=== PATIENT | female | born 1995 | race Caucasian/White ===

== ENCOUNTER 2016-12-29 16:16 | Emergency (ER) | payer OTHER ==
[~2016-12-29] VITALS: Ht 154.9 cm; Wt 68.2 kg
[2016-12-29 16:16] VITALS: BP 111/66
[~2016-12-29 16:16] MED LIST: ACET50TA PO; DOCU10CA PO; IBUP80TA PO
== END 2016-12-29 19:10 | disposition left against medical advice (07) ==
LOC: M ED 16:16
DX: M79.604 Pain in right leg (principal); F17.210 Nicotine dependence, cigarettes, uncomplicated

== ENCOUNTER → 2017-06-15 | Outpatient (REF) | payer OTHER | LOC: M LAB REF 16:13 | DX: R30.0 Dysuria (principal) ==

== ENCOUNTER → 2018-12-04 | Outpatient (CLI) | payer MEDICAID ==
[~2018-12-04] MED LIST changes: -ACET50TA PO; +MAPA500T2 PO
== END ==
LOC: M OUTALCOH 08:40
PROVIDERS: ATTEND Psychiatry & Neurology Psychiatry
DX: Z03.89 Encounter for observation for other suspected diseases and conditions ruled out (principal)

== ENCOUNTER 2018-12-17 10:29 | Outpatient (RCR) | payer MEDICAID | END 2019-01-13 | LOC: M OUTALCOH 10:29 | PROVIDERS: ATTEND Psychiatry & Neurology Psychiatry | DX: Z03.89 Encounter for observation for other suspected diseases and conditions ruled out (principal) ==

== ENCOUNTER 2019-05-21 17:30 | Emergency (ER) | payer MEDICAID ==
[~2019-05-21] VITALS: Ht 154.9 cm; Wt 77.3 kg
[2019-05-21] MEDS ORDERED: LIDOCAINE 2% W/EPIN INJ 20ML **PRES FREE INJ ONE (20:00)
[2019-05-21 21:07] VITALS: BP 131/76
--- NOTE | 2019-05-22 07:43 | REP ---
Right wrist two views: There is no fracture or dislocation. Mineralization joint spaces are normal. There are no calcifications or foreign bodies. There is questionably a defect in the soft tissues over the dorsum of the metacarpals. This should be correlated clinically. Electronically Signed by Tyrone Childs MD 05/22/2019 07:35 A
== END 2019-05-21 21:28 | disposition home or self-care (01) ==
LOC: EDBD 17:30 → M ED 17:30
DX: S61.411A Laceration without foreign body of right hand, initial encounter (principal); S61.511A Laceration without foreign body of right wrist, initial encounter; W25.XXXA Contact with sharp glass, initial encounter; Y92.018 Other place in single-family (private) house as the place of occurrence of the external cause

== ENCOUNTER → 2019-09-29 | Outpatient (CLI) | payer OTHER | LOC: M LABSMTC 12:21 | PROVIDERS: ATTEND Family Medicine | DX: Z03.818 Encounter for observation for suspected exposure to other biological agents ruled out (principal); Z11.59 Encounter for screening for other viral diseases | CPT/HCPCS: C9803; U0003 ==

== ENCOUNTER → 2019-12-10 | Outpatient (REF) | payer OTHER ==
[2019-12-12 16:43] LABS: CHLAMYDIA DNA AMPLIFICATION NEGATIVE (NEGATIVE); GC DNA AMPLIFICATION NEGATIVE (NEGATIVE)
== END ==
LOC: M SFHCWAGY 11:57
PROVIDERS: ATTEND Nurse Practitioner Family
DX: Z12.4 Encounter for screening for malignant neoplasm of cervix (principal); Z11.3 Encounter for screening for infections with a predominantly sexual mode of transmission; N76.0 Acute vaginitis

== ENCOUNTER 2020-01-20 03:15 | Emergency (ER) | payer OTHER ==
[~2020-01-20] VITALS: Ht 154.9 cm; Wt 77.3 kg
[2020-01-20 04:01] LABS: HEMOGLOBIN 14.3 g/dl (12.0-15.5); MEAN CORPUSCULAR HEMOGLOBIN 33.2 pg (27.0-33.0); MEAN CORPUSCULAR HGB CONC 33.3 g/dl (32.0-36.5); MEAN CORPUSCULAR VOLUME 99.8 fl (80.0-96.0); PLATELET COUNT, AUTOMATED 223 10^3/uL (150-450); RED BLOOD COUNT 4.31 10^6/uL (4.00-5.40); WHITE BLOOD COUNT 6.3 10^3/uL (4.0-10.0)
[2020-01-20 04:28] LABS: HCG, SERUM QUALITATIVE NEGATIVE (NEGATIVE)
[2020-01-20 04:38] LABS: AMPHETAMINES LEVEL URINE NEGATIVE (NEGATIVE); BARBITURATES URINE NEGATIVE (NEGATIVE); BENZODIAZEPINES URINE NEGATIVE (NEGATIVE); CANNABINOIDS URINE NEGATIVE (NEGATIVE); COCAINE METABOLITE URINE NEGATIVE (NEGATIVE); METHADONE URINE NEGATIVE (NEGATIVE); OPIATES URINE POSITIVE (NEGATIVE); PHENCYCLIDINE URINE NEGATIVE (NEGATIVE)
[2020-01-20 04:41] LABS: ACETAMINOPHEN LEVEL < 2.0 UG/ML (10.0-30.0); ALBUMIN 3.9 GM/DL (3.2-5.2); ALT/SGPT 135 U/L (12-78); BILIRUBIN,DIRECT < 0.1 MG/DL (0.0-0.2); BILIRUBIN,TOTAL 0.3 MG/DL (0.2-1.0); BLOOD UREA NITROGEN 8 MG/DL (7-18); CALCIUM LEVEL 8.8 MG/DL (8.5-10.1); CARBON DIOXIDE LEVEL 28 MEQ/L (21-32); CHLORIDE LEVEL 111 MEQ/L (98-107); CREATININE FOR GFR 0.68 MG/DL (0.55-1.30); ETHYL ALCOHOL (ETHANOL) 0.228 % (0.000-0.010); GLOMERULAR FILTRATION RATE > 60.0 (>60); GLUCOSE, FASTING 89 MG/DL (70-100); POTASSIUM SERUM 4.5 MEQ/L (3.5-5.1); SALICYLATE LEVEL < 1.7 MG/DL (5.0-30.0); SODIUM LEVEL 144 MEQ/L (136-145); TOTAL PROTEIN 7.6 GM/DL (6.4-8.2)
[2020-01-20 11:47] VITALS: BP 121/72
== END 2020-01-20 11:57 | disposition home or self-care (01) ==
LOC: M ED 03:15
DX: F10.120 Alcohol abuse with intoxication, uncomplicated (principal); F17.210 Nicotine dependence, cigarettes, uncomplicated
CPT/HCPCS: 36415; 80048; 80076; 80307; 84443; 84703; 85027; 99284; G0480

== ENCOUNTER 2020-02-08 17:40 | Emergency (ER) | payer OTHER ==
[~2020-02-08] VITALS: Ht 154.9 cm; Wt 75.7 kg
[2020-02-08 17:41] VITALS: BP 119/69
== END 2020-02-08 19:14 | disposition home or self-care (01) ==
LOC: M ED 17:40
DX: R05 Cough (principal); R09.89 Other specified symptoms and signs involving the circulatory and respiratory systems; J02.9 Acute pharyngitis, unspecified; Z20.828 Contact with and (suspected) exposure to other viral communicable diseases; F17.290 Nicotine dependence, other tobacco product, uncomplicated
CPT/HCPCS: 99282; U0003

== ENCOUNTER → 2021-10-06 | Outpatient (REF) | payer OTHER | LOC: M SFHCLERA 15:48 | PROVIDERS: ATTEND Family Medicine | DX: R52 Pain, unspecified (principal) ==

== ENCOUNTER → 2022-02-07 | Outpatient (REF) | payer OTHER | LOC: M LAB REF 17:36 | PROVIDERS: ATTEND Student in an Organized Health Care Education/Training Program | DX: J02.9 Acute pharyngitis, unspecified (principal) ==

== ENCOUNTER → 2022-12-22 | Outpatient (CLI) | payer OTHER ==
[2022-12-22 17:45] LABS: HEMATOCRIT 39.6 % (36.0-47.0); HEMOGLOBIN 13.2 g/dl (12.0-15.5); MEAN CORPUSCULAR HEMOGLOBIN 31.4 pg (27.0-33.0); MEAN CORPUSCULAR HGB CONC 33.3 g/dl (32.0-36.5); MEAN CORPUSCULAR VOLUME 94.1 fl (80.0-96.0); PLATELET COUNT, AUTOMATED 221 10^3/uL (150-450); RED BLOOD COUNT 4.21 10^6/uL (4.00-5.40); WHITE BLOOD COUNT 11.3 10^3/uL (4.0-10.0)
[2022-12-22 18:32] LABS: HIV 1&2 SCREEN NEGATIVE (NEGATIVE)
[2022-12-22 18:40] LABS: HEPATITIS C VIRUS ABY INDEX 0.15 INDEX (<0.8)
[2022-12-22 19:20] LABS: GC DNA AMPLIFICATION NEGATIVE (NEGATIVE)
== END ==
LOC: M PLALAB 14:31
PROVIDERS: ATTEND Specialist
DX: Z34.81 Encounter for supervision of other normal pregnancy, first trimester (principal)

== ENCOUNTER → 2023-03-14 | Outpatient (CLI) | payer OTHER | LOC: M WHC 09:44 | PROVIDERS: ATTEND Obstetrics & Gynecology | DX: Z34.92 Encounter for supervision of normal pregnancy, unspecified, second trimester (principal) ==

== ENCOUNTER → 2023-04-03 | Outpatient (CLI) | payer OTHER ==
[2023-04-03 14:42] LABS: HEMATOCRIT 36.6 % (36.0-47.0); MEAN CORPUSCULAR HEMOGLOBIN 30.9 pg (27.0-33.0); MEAN CORPUSCULAR HGB CONC 32.8 g/dl (32.0-36.5); MEAN CORPUSCULAR VOLUME 94.3 fl (80.0-96.0); PLATELET COUNT, AUTOMATED 175 10^3/uL (150-450); RED BLOOD COUNT 3.88 10^6/uL (4.00-5.40); WHITE BLOOD COUNT 12.1 10^3/uL (4.0-10.0)
[2023-04-03 16:06] LABS: CHLAMYDIA DNA AMPLIFICATION NEGATIVE (NEGATIVE); GC DNA AMPLIFICATION NEGATIVE (NEGATIVE)
== END ==
LOC: M PLALAB 09:29
PROVIDERS: ATTEND Obstetrics & Gynecology
DX: Z34.92 Encounter for supervision of normal pregnancy, unspecified, second trimester (principal)

== ENCOUNTER → 2023-06-11 | Outpatient (REF) | payer OTHER | LOC: M SFHCWAGY 15:02 | PROVIDERS: ATTEND Obstetrics & Gynecology | DX: Z36.89 Encounter for other specified antenatal screening (principal); Z3A.36 36 weeks gestation of pregnancy ==

== ENCOUNTER → 2023-06-11 | Outpatient (REF) | payer OTHER | LOC: M PLALAB 10:06 | PROVIDERS: ATTEND Obstetrics & Gynecology | DX: Z53.9 Procedure and treatment not carried out, unspecified reason (principal) ==

== ENCOUNTER 2023-07-10 09:44 | Inpatient (IN) | payer OTHER ==
[~2023-07-10] VITALS: Ht 154.9 cm; Wt 98.7 kg
[2023-07-10] VITALS (12 sets, daily range): BP systolic 100–133; BP diastolic 59–78
[2023-07-10] MEDS ORDERED: OMEP-173 PO (10:11)
[2023-07-10] MEDS ORDERED: MULTTAB20 PO (10:11)
[2023-07-10] MEDS ORDERED: LIDOCAINE 1% MDV 20ML VIAL INFIL PRN (10:25)
[2023-07-10] MEDS ORDERED: OXYTOCIN DRIP 30 UNITS in IV 1 EA IV PRN (10:25)
[2023-07-10] MEDS: miSOPROStol 50MCG 1/2 TABLET SL SCH ×2 (11:03→15:05)
[2023-07-10 11:33] LABS: HEMATOCRIT 34.1 % (36.0-47.0); HEMOGLOBIN 11.1 g/dl (12.0-15.5); MEAN CORPUSCULAR HEMOGLOBIN 27.8 pg (27.0-33.0); MEAN CORPUSCULAR HGB CONC 32.6 g/dl (32.0-36.5); MEAN CORPUSCULAR VOLUME 85.5 fl (80.0-96.0); PLATELET COUNT, AUTOMATED 178 10^3/uL (150-450); RED BLOOD COUNT 3.99 10^6/uL (4.00-5.40)
[2023-07-10] MEDS: LR 1,000 ML IV SCH (23:11)
[2023-07-10] MEDS: OXYTOCIN DRIP 30 UNITS in IV 1 EA IV SCH (23:19)
[2023-07-11] VITALS (50 sets, daily range): BP systolic 87–132; BP diastolic 51–81; O2SAT 97–98
[2023-07-11] MEDS ORDERED: diphenhydrAMINE 50MG/ML VIAL IV PRN (01:10)
[2023-07-11] MEDS ORDERED: NALOXONE INJ 0.4MG/1ML VIAL IV PRN (01:10)
[2023-07-11] MEDS ORDERED: ePHEDrine SULFATE 25 MG/5 ML(5MG/ML) SYRINGE IVP PRN (01:10)
[2023-07-11] MEDS ORDERED: ONDANSETRON 4MG 2ML VIAL IV PRN (01:10)
[2023-07-11] MEDS ORDERED: LR 500 ML IV PRN (01:10)
[2023-07-11] MEDS ORDERED: EPIDURAL/PCA KEYS XX PRN (01:10)
[2023-07-11] MEDS: FENTANYL/ROPIVACAINE/NACL BAG 100 ML EPIDURAL SCH (01:37)
[2023-07-11] MEDS ORDERED: IBUPROFEN 600MG TAB PO PRN (11:45)
[2023-07-11] MEDS ORDERED: RHOGAM 300MCG (1500IU) INJ IM SCH (11:45)
[2023-07-11] MEDS ORDERED: DIBUCAINE 1% OINTMENT 30GM TOP PRN (11:45)
[2023-07-11] MEDS ORDERED: DOCUSATE SODIUM 100MG CAPSULE PO PRN (11:45)
[2023-07-11] MEDS ORDERED: METHYLERGONOVINE MALEATE 0.2 MG TAB PO PRN (11:45)
[2023-07-11] MEDS ORDERED: ACETAMINOPHEN TAB 650MG DOSE (2X325MG) PO PRN (11:45)
[2023-07-11] MEDS: METHYLERGONOVINE MALEATE 0.2MG/ML 1ML VIAL IM ONE (11:57)
[2023-07-11] MEDS: PRENATAL VITAMINS CHEWABLE TABLET PO SCH (14:45)
[2023-07-11] MEDS: IBUPROFEN 800 MG TAB PO PRN (16:25)
[2023-07-11] MEDS: ACETAMINOPHEN 500 MG TAB PO PRN (22:02)
[2023-07-12 06:00] VITALS: BP 102/58; O2SAT 98
[2023-07-13] MEDS ORDERED: MEASLES,MUMPS,RUBELLA VACCINE INJ (MMR-II) SC.IMMUN ONE (09:00)
== END 2023-07-12 14:35 | disposition home or self-care (01) | DRG 560 ==
LOC: M LDI 09:44 → M OBS 07-11 14:24
PROVIDERS: ADMIT Specialist; ATTEND Advanced Practice Midwife
PROC: 3E0P7GC Introduction of Other Therapeutic Substance into Female Reproductive, Via Natural or Artificial Opening (ICD-10-PCS; 2023-07-10)
PROC: 10E0XZZ Delivery of Products of Conception, External Approach (ICD-10-PCS; principal; 2023-07-11)
PROC: 0HQ9XZZ Repair Perineum Skin, External Approach (ICD-10-PCS; 2023-07-11)
DX: O48.0 Post-term pregnancy (principal); O70.0 First degree perineal laceration during delivery; Z3A.40 40 weeks gestation of pregnancy; Z79.899 Other long term (current) drug therapy; Z37.0 Single live birth

== ENCOUNTER → 2023-11-23 | Outpatient (CLI) | payer MEDICAID ==
[~2023-11-23] MED LIST changes: +MULTTAB20 PO; +OMEP-173 PO
== END ==
LOC: M OUTALCOH 07:50
PROVIDERS: ATTEND Psychiatry & Neurology Psychiatry
DX: Z03.89 Encounter for observation for other suspected diseases and conditions ruled out (principal); Z72.0 Tobacco use

== ENCOUNTER → 2024-03-20 | Outpatient (CLI) | payer MEDICAID | LOC: M OUTALCOH 07:55 | PROVIDERS: ATTEND Psychiatry & Neurology Psychiatry | DX: Z03.89 Encounter for observation for other suspected diseases and conditions ruled out (principal) ==

== ENCOUNTER → 2024-08-19 | Outpatient (REF) | payer MEDICAID, OTHER ==
[2024-08-19 14:46] LABS: BASO % 0.5 % (0.0-1.0); EOS # 0.1 10^3/uL (0.0-0.5); EOS % 1.3 % (0.0-3.0); HEMATOCRIT 38.6 % (36.0-47.0); HEMOGLOBIN 12.7 g/dl (12.0-15.5); LYMPH % 32.5 % (24.0-44.0); MEAN CORPUSCULAR HEMOGLOBIN 29.7 pg (27.0-33.0); MEAN CORPUSCULAR HGB CONC 32.9 g/dl (32.0-36.5); MEAN CORPUSCULAR VOLUME 90.2 fl (80.0-96.0); MONO # 0.5 10^3/uL (0.0-0.8); MONO % 8.4 % (2.0-8.0); NEUTROPHILS # 3.5 10^3/uL (1.5-8.5); NEUTROPHILS % 57.1 % (36.0-66.0); PLATELET COUNT, AUTOMATED 246 10^3/uL (150-450); RED BLOOD COUNT 4.28 10^6/uL (4.00-5.40); WHITE BLOOD COUNT 6.1 10^3/uL (4.0-10.0)
[2024-08-19 15:14] LABS: ALBUMIN 3.5 G/DL (3.2-5.2); ALKALINE PHOSPHATASE 54 U/L (35-104); ALT/SGPT 29 U/L (7.0-40); AST/SGOT 25 U/L (<34); BILIRUBIN,TOTAL 0.5 MG/DL (0.3-1.2); BLOOD UREA NITROGEN 14 MG/DL (9-23); CALCIUM LEVEL 8.4 MG/DL (8.5-10.1); CARBON DIOXIDE LEVEL 25 MMOL/L (20-31); CHLORIDE LEVEL 104 MMOL/L (98-107); CREATININE FOR GFR 0.71 MG/DL (0.55-1.30); GLOMERULAR FILTRATION RATE > 90.0 (>60); GLUCOSE, FASTING 98 MG/DL (60-100); POTASSIUM SERUM 3.4 MMOL/L (3.5-5.1); SODIUM LEVEL 139 MMOL/L (136-145); TOTAL PROTEIN 7.2 G/DL (5.7-8.2)
[2024-08-19 15:15] LABS: FREE T4 1.28 NG/DL (0.89-1.76)
[2024-08-19 15:16] LABS: THYROID STIMULATING HORMONE 4.952 uIU/ML (0.55-4.78)
[2024-08-19 15:17] LABS: HEMOGLOBIN A1c 4.9 % (4.0-6.0)
== END ==
LOC: M LABWUC 14:13
PROVIDERS: ATTEND Family Medicine
DX: Z00.00 Encounter for general adult medical examination without abnormal findings (principal)

== ENCOUNTER → 2024-10-30 | Outpatient (CLI) | payer OTHER ==
[2024-10-30 14:59] LABS: FREE T4 1.19 NG/DL (0.89-1.76)
[2024-10-30 15:05] LABS: CALCIUM LEVEL 9.1 MG/DL (8.5-10.1); CARBON DIOXIDE LEVEL 25 MMOL/L (20-31); CHLORIDE LEVEL 104 MMOL/L (98-107); CREATININE FOR GFR 0.79 MG/DL (0.55-1.30); GLOMERULAR FILTRATION RATE > 90.0 (>60); MAGNESIUM LEVEL 1.7 MG/DL (1.8-2.4); POTASSIUM SERUM 3.7 MMOL/L (3.5-5.1); SODIUM LEVEL 140 MMOL/L (136-145)
[2024-10-30 16:11] LABS: THYROID PEROXIDASE ANTIBODY < 28.0 U/ML (<60.0)
== END ==
LOC: M WUC 09:23
PROVIDERS: ATTEND Family Medicine
DX: E87.6 Hypokalemia (principal); R79.89 Other specified abnormal findings of blood chemistry

== ENCOUNTER → 2025-02-27 | Outpatient (CLI) | payer OTHER | LOC: M PLALAB 11:50 | PROVIDERS: ATTEND Physician Assistant | DX: Z13.71 Encounter for nonprocreative screening for genetic disease carrier status (principal); Z80.3 Family history of malignant neoplasm of breast ==

== ENCOUNTER → 2025-02-27 | Outpatient (REF) | payer OTHER ==
[2025-03-03 14:15] LABS: HPV APTIMA Not Detected (Not Detected)
== END ==
LOC: M PLALAB 11:33
PROVIDERS: ATTEND Physician Assistant
DX: Z01.419 Encounter for gynecological examination (general) (routine) without abnormal findings (principal)